=== PATIENT | female | born 1970 | race Two or more races ===

== ENCOUNTER 2020-04-04 13:00 | Inpatient (IN) | payer OTHER ==
[~2020-04-04] VITALS: Ht 152.4 cm; Wt 74.8 kg
[2020-04-04] MEDS ORDERED: VISTARIL50 MG PO (14:22)
[2020-04-09] MEDS ORDERED: IBUPROFEN800 MG PO (07:22)
[2020-04-09] MEDS ORDERED: OXYC1TAB9 PO (07:22)
[2020-04-09] MEDS ORDERED: LEVSIN/SL0.125 MG SL (07:22)
== END 2020-04-09 09:37 | disposition home or self-care (01) | DRG 743 ==
LOC: O/R 04-07 07:05 → SURG-SUITE 04-07 07:05 → SURH 04-07 13:00 → OB/GYN 04-07 14:08 → SURG-SUITE 04-08 09:39 → OB/GYN 04-08 19:50
PROVIDERS: ADMIT Obstetrics & Gynecology Gynecology; ATTEND Obstetrics & Gynecology Gynecology
PROC: 0UT70ZZ Resection of Bilateral Fallopian Tubes, Open Approach (ICD-10-PCS; 2020-04-07)
PROC: 0UT90ZZ Resection of Uterus, Open Approach (ICD-10-PCS; principal; 2020-04-07 13:00)
DX: N80.0 Endometriosis of uterus (principal); D25.1 Intramural leiomyoma of uterus; N72 Inflammatory disease of cervix uteri; N92.0 Excessive and frequent menstruation with regular cycle; I10 Essential (primary) hypertension